=== PATIENT | female | born 1975 | race Caucasian/White ===

== ENCOUNTER 2019-05-11 07:12 | Emergency (ER) | payer BC, OTHER ==
[2019-05-11] MEDS ORDERED: Ketorolac 60 MG/2 ML SDV IM ONE (07:42)
--- NOTE | 2019-05-11 07:45 | EDM.PDOC ---
ED HPI GENERAL MEDICAL PROBLEM - General Chief Complaint: Lower Extremity Injury/Pain Stated Complaint: FALL Time Seen by Provider: 05/11/19 07:12 Source of Information: Reports: Patient, EMS History Limitations: Reports: No Limitations - History of Present Illness INITIAL COMMENTS - FREE TEXT/NARRATIVE: 43 y.o.w.foster came by EMS to the ED after she fell down the stairs and heard a "pop " at her right knee. She has mod pain at her right ant knee. There was no direct Trauma to her right knee. There was no swelling no open wound but tenderness to palpation and movement. No SOB, no C?, no other acute med issues. BP 109/69 pulse 108 RR 20 Pulse ox 100% on RA Temp 36.5 Onset Date: 05/11/19 Onset Time: 16:00 Duration: Minutes: Location: Reports: Lower Extremity, Right (ant knee) Quality: Reports: Ache, Dull, Pressure Severity: Moderate Improves with: Reports: Cold Therapy Worsens with: Reports: Movement Context: Reports: Trauma Associated Symptoms: Reports: No Other Symptoms R knee Pain Score (Numeric/FACES): 10 - Related Data Allergies Allergy/AdvReac Type Severity Reaction Status Date / Time cortisone Allergy Abdominal Verified 05/11/19 07:25 Pain Home Meds: Home Meds NK [No Known Home Meds] 05/11/19 [History] Past Medical History - Past Health History Medical/Surgical History: Denies Medical/Surgical History Respiratory History: Reports: Asthma Gastrointestinal History: Reports: Pancreatitis SPA CONCIERGE History: Reports: Other SPA CONCIERGE History: [id number] Musculoskeletal History: Reports: Fracture Other Musculoskeletal History: R toe fx Neurological History: Reports: Migraines Endocrine/Metabolic History: Reports: Obesity/BMI 30+ - Infectious Disease History Infectious Disease History: Reports: Chicken Pox, Measles, Shingles - Past Surgical History HEENT Surgical History: Reports: Adenoidectomy, Oral Surgery, Tonsillectomy GI Surgical History: Reports: None Musculoskeletal Surgical History: Reports: None Social & Family History - Family History Family Medical History: Noncontributory - Tobacco Use Smoking Status *Q: Never Smoker - Caffeine Use Caffeine Use: Reports: Coffee, Soda - Recreational Drug Use Recreational Drug Use: No Review of Systems - Review of Systems Review Of Systems: See Below Constitutional: Reports: No Symptoms Eyes: Reports: No Symptoms Ears: Reports: No Symptoms Nose: Reports: No Symptoms Mouth/Throat: Reports: No Symptoms Respiratory: Reports: No Symptoms Cardiovascular: Reports: No Symptoms GI/Abdominal: Reports: No Symptoms Genitourinary: Reports: No Symptoms Musculoskeletal: Reports: Other (ant knee pain, no sweling, no open wound, pain with movement) Skin: Reports: No Symptoms Neurological: Reports: No Symptoms Psychiatric: Reports: No Symptoms ED EXAM, GENERAL - Physical Exam Exam: See Below Exam Limited By: Physical Impairment General Appearance: Alert, WD/WN, Mild Distress, Moderate Distress, Obese ( morbid obese) Eye Exam: Bilateral Eye: Normal Inspection Ears: Normal External Exam Ear Exam: Bilateral Ear: Auricle Normal Nose: Normal Inspection Throat/Mouth: Normal Inspection Head: Atraumatic, Normocephalic Neck: Normal Inspection, Supple, Non-Tender, Full Range of Motion Respiratory/Chest: No Respiratory Distress, Lungs Clear, Normal Breath Sounds Cardiovascular: Normal Peripheral Pulses, Regular Rate, Rhythm, No Edema, No Gallop Peripheral Pulses: 1+: Brachial (L) GI/Abdominal: Normal Bowel Sounds, Soft, Non-Tender, No Organomegaly, No Abnormal Bruit, No Mass, Pelvis Stable (Female) Exam: Deferred Rectal (Female) Exam: Deferred Back Exam: Normal Inspection Extremities: Normal Inspection, Limited Range of Motion (right knee) Neurological: Alert, Oriented, CN II-XII Intact, Normal Cognition, Abnormal Gait (due to right knee pain) Psychiatric: Normal Affect, Normal Mood Skin Exam: Warm, Dry, Intact, Normal Color Lymphatic: No Adenopathy Course - Vital Signs Text/Narrative:: 43 y.o.w.f came by EMS to the ED after she fell down the stairs and heard a "pop " at her right knee. She has mod pain at her right ant knee. There was no direct Trauma to her right knee. There was no swelling no open wound but tenderness to palpation and movement. No SOB, no C?, no other acute med issues. BP 109/69 pulse 108 RR 20 Pulse ox 100% on RA Temp 36.5 PE: WNWD W F with right knee pain after a fall. Imaging: Righ knee 3 view: NAD as per RAD Impression: Right knee sprain Tx: Toradol, ICE, Knee immobilizer. Pt has her own crutches. Reexam: Improved Plan: D/C with instructions Last Recorded V/S: Last Vital Signs Temp 36.5 C 05/11/19 07:12 Pulse 102 H 05/11/19 09:24 Resp 18 05/11/19 09:24 BP 109/64 05/11/19 09:24 Pulse Ox 100 05/11/19 09:24 - Orders/Labs/Meds Orders: Active Orders 24 hr Category Date Time Status Cooling Warming Measures [RC] ASDIRECTED Care 05/11/19 07:42 Active Knee 3V Rt [CR] Stat Exams 05/11/19 07:30 Taken Ice Bag [Ice Therapy] [OM.PC] Routine Oth 05/11/19 07:42 Ordered Meds: Medications Discontinued Medications Generic Name Dose Route Start Last Admin Trade Name Benny PRN Reason Stop Dose Admin Ketorolac Tromethamine 60 mg 05/11/19 07:42 05/11/19 07:45 Toradol IM 05/11/19 07:43 60 mg ONETIME ONE Administration Departure - Departure Time of Disposition: 09:37 Disposition: Home, Self-Care 01 Condition: Good Clinical Impression: Right knee sprain Qualifiers: Encounter type: initial encounter Involved ligament of knee: unspecified ligament Qualified Code(s): S83.91XA - Sprain of unspecified site of right knee , initial encounter - Discharge Information Instructions: Ketorolac injection, Knee Pain, Adult, [id number] Referrals: Jatinder Lowery MD [Primary Care Provider] - Forms: ED Department Discharge, ED Return to Work/School Form Additional Instructions: Rest, Ice and elevation, use knee immobilizer/crutches, please follow up with your regular MD next week as needed at clinic, come back if your symptoms get worse acutely - My Orders Last 24 Hours: My Active Orders 05/11/19 07:30 Knee 3V Rt [CR] Stat 05/11/19 07:42 Cooling Warming Measures [RC] ASDIRECTED Ice Bag [Ice Therapy] [OM.PC] Routine - Assessment/Plan Last 24 Hours: My Active Orders 05/11/19 07:30 Knee 3V Rt [CR] Stat 05/11/19 07:42 Cooling Warming Measures [RC] ASDIRECTED Ice Bag [Ice Therapy] [OM.PC] Routine
[2019-05-11 09:24] VITALS: BP 109/64
== END 2019-05-11 10:05 | disposition home or self-care (01) ==
LOC: FB.ED 07:12
DX: S83.91XA Sprain of unspecified site of right knee, initial encounter (principal); Z88.8 Allergy status to other drugs, medicaments and biological substances; W10.9XXA Fall (on) (from) unspecified stairs and steps, initial encounter
CPT/HCPCS: 73562; 96372; 99284; J1885; 29505

== ENCOUNTER 2019-12-02 10:56 | Emergency (ER) | payer BC ==
[2019-12-02 11:15] VITALS: PULSE 111
--- NOTE | 2019-12-02 11:32 | EDM.PDOC ---
ED HPI GENERAL MEDICAL PROBLEM - General Chief Complaint: Lower Extremity Injury/Pain Time Seen by Provider: 12/02/19 11:25 Source of Information: Reports: Patient History Limitations: Reports: No Limitations - History of Present Illness INITIAL COMMENTS - FREE TEXT/NARRATIVE: 44-year-old female who was going down stairs at her home and was leading with her left foot and her left foot slipped causing her to fall and twisting her left ankle and bending her left knee inward with a feeling of a pop and falling to the ground catching herself with both hands and landing on her left side. She did not hit her head. There was no loss of consciousness. She has no neck or back pain. She does have pain in her left knee, mostly on the lateral aspect and also in her left ankle, mostly on the lateral side as well. She was having 10/10 pain with any kind of movement initially and was unable to bear weight area and she arrives to us via ambulance. Her pain is now a 7/10 with a constant aching and throbbing. The pain was a sharp pain initially and is a sharp pain now with any type of movement and with some palpation along the lateral aspect. She has normal sensation and movement in her foot. She has no abdominal pain. This occurred approximately 10:15 AM today. She apparently had a on her right knee several months ago for ACL reconstruction and has had limited ability to use her right leg because of this. There are no other associated signs or symptoms. There are no other modifying factors. 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: Other (see below) (Nothing) Left Knee Pain Score (Numeric/FACES): 8 - Related Data Allergies Allergy/AdvReac Type Severity Reaction Status Date / Time cortisone Allergy Abdominal Verified 05/11/19 07:25 Pain Home Meds: Home Meds Acetaminophen/HYDROcodone [Bellwood 325-5 MG] 1 - 2 tab PO Q6H PRN #20 tab [Rx] Albuterol Sulfate [Proair Hfa] 2 inh INH Q4H PRN 03/20/20 [History] Meloxicam 1 tab PO DAILY 12/02/19 [History] Past Medical History Respiratory History: Reports: Other (See Below) (Reactive airway disease and uses inhaler intermittently) Gastrointestinal History: Reports: Pancreatitis 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: 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 Musculoskeletal History: Reports: Fracture Other Musculoskeletal History: R toe fx Neurological History: Reports: Migraines Endocrine/Metabolic History: Reports: Obesity/BMI 30+ - Infectious Disease History Infectious Disease History: Reports: Chicken Pox, Measles, Shingles - Past Surgical History HEENT Surgical History: Reports: Adenoidectomy, Oral Surgery, Tonsillectomy Female Surgical History: Reports: Section Musculoskeletal Surgical History: Reports: Arthroscopic Knee Other Musculoskeletal Surgeries/Procedures:: right knee 10/2019 Social & Family History - Tobacco Use Smoking Status *Q: Never Smoker - Caffeine Use Caffeine Use: Reports: Coffee, Soda - Alcohol Use Alcohol Use History: No - Recreational Drug Use Recreational Drug Use: No - Living Situation & Occupation Occupation: Unemployed Review of Systems - Review of Systems Review Of Systems: See Below Constitutional: Reports: No Symptoms Eyes: Reports: No Symptoms Ears: Reports: No Symptoms Nose: Reports: No Symptoms Mouth/Throat: Reports: No Symptoms Respiratory: Reports: No Symptoms Cardiovascular: Reports: No Symptoms GI/Abdominal: Reports: No Symptoms Genitourinary: Reports: No Symptoms Musculoskeletal: Reports: Other (Left knee and ankle pain status post injury) Skin: Reports: No Symptoms Neurological: Reports: No Symptoms ED EXAM, GENERAL - Physical Exam Exam: See Below Exam Limited By: No Limitations General Appearance: Alert, WD/WN, Moderate Distress (In pain.), Other (She is awake, alert and does not appear to be toxic.) Eye Exam: Bilateral Eye: EOMI, Normal Inspection, PERRL Ears: Normal External Exam, Hearing Grossly Normal Ear Exam: Bilateral Ear: Auricle Normal Nose: Normal Inspection, Normal Mucosa, No Blood Throat/Mouth: Normal Inspection, Normal Lips, Normal Oropharynx, Normal Voice, No Airway Compromise Head: Atraumatic, Normocephalic Neck: Normal Inspection, Supple, Non-Tender, Full Range of Motion Respiratory/Chest: No Respiratory Distress, Lungs Clear, Normal Breath Sounds, No Accessory Muscle Use, Chest Non-Tender Cardiovascular: Normal Peripheral Pulses, No Murmur, Tachycardia Peripheral Pulses: 2+: Radial (L), Radial (R), Dorsalis Pedis (L), Dorsalis Pedis (R) GI/Abdominal: Normal Bowel Sounds, Soft, Non-Tender, Other (Protuberant) Back Exam: Normal Inspection Extremities: No Pedal Edema, Normal Capillary Refill, Other (Tender around the lateral aspect of left knee but also some along the medial joint line and also tender over left lateral ankle. No foot tenderness. No lower leg tenderness below the knee and above the ankle. No definite crepitus or definite bony deformity.) Neurological: Alert, Oriented, CN II-XII Intact, Normal Cognition, No Motor/ Sensory Deficits Skin Exam: Warm, Dry, Intact, Normal Color, No Rash Course - Vital Signs Last Recorded V/S: Last Vital Signs Temp 36.3 C 12/02/19 11:09 Pulse 111 H 12/02/19 11:09 Resp 18 12/02/19 11:09 BP 132/79 12/02/19 11:09 Pulse Ox 100 12/02/19 11:09 - Orders/Labs/Meds Orders: Active Orders 24 hr Category Date Time Status Ankle Min 3V Lt [CR] Stat Exams 12/02/19 11:41 Taken Knee 3V Lt [CR] Stat Exams 12/02/19 11:41 Taken Meds: Medications Discontinued Medications Generic Name Dose Route Start Last Admin Trade Name Barberq PRN Reason Stop Dose Admin Hydrocodone Bitart/Acetaminophen 2 tab 12/02/19 11:42 12/02/19 12:03 Bellwood 325-5 Mg PO 12/02/19 11:43 2 tab ONETIME ONE Administration - Radiology Interpretation Free Text/Narrative:: X-ray of left knee shows no definite fracture or dislocation. X-ray of left ankle shows nondisplaced left distal fibula fracture, Crane B. - Re-Assessments/Exams Free Text/Narrative Re-Assessment/Exam: 12/02/19 12:40: The patient has an injury to her left knee with internal derangement. She was having much pain to do a thorough ranging of her left knee and she also had x-ray evidence of a left lateral malleolus fracture. She already has an orthopedist through [facility] in [place] (Dr. Jean-Baptiste). I was able to call his clinic at [facility] and arrange for her to be seen by Dr. Jean-Baptiste on 12/06/2019 at 9:45 AM at his [place] clinic. For now the patient will have an Onel wrap to her left knee and an orthotic boot to her left foot and ankle and lower leg and she is to have no weightbearing on the left leg using her crutches. I will also give the patient a prescription for hydrocodone 5/325 for her more severe pain. She is to elevate her left knee and ankle and apply ice packs intermittently to these areas over the next 2-3 days. Departure - Departure Time of Disposition: 12:55 Disposition: Home, Self-Care 01 Condition: Good Clinical Impression: Internal derangement of left knee Closed fracture of left distal fibula Qualifiers: Encounter type: initial encounter Fracture morphology: unspecified fracture morphology Qualified Code(s): S82.832A - Other fracture of upper and lower end of left fibula, initial encounter for closed fracture Fall from slipping on ice Qualifiers: Encounter type: initial encounter Qualified Code(s): W00.9XXA - Unspecified fall due to ice and snow, initial encounter - Discharge Information Prescriptions: Acetaminophen/HYDROcodone [Bellwood 325-5 MG] 1 - 2 tab PO Q6H PRN #20 tab PRN Reason: Moderate to severe pain Instructions: Crutch Use, Adult, [id number], Ankle Fracture, [id number] Referrals: PCP,None [Primary Care Provider] - Forms: ED Department Discharge Additional Instructions: There was no definite fracture evident on your left knee x-ray but you may have a ligament or meniscus injury to this knee. You do have a fracture of the left lateral ankle. Use the Onel wrap on your left knee for comfort and support. Use the orthotic boot on your left lower leg, ankle and foot and leave it in place pretty much at all times unless when cleaning or foot or leg. Use your crutches with no weightbearing on your left leg. Medication as prescribed for moderate to severe pain (hydrocodone 5/325). You have an appointment to see Dr. Jean-Baptiste at his [place] clinic on 12/06/2019 at 9:45 AM. Elevate your left knee and ankle often over the next 4-5 days and you should apply ice packs intermittently to the left knee and ankle as well. Back to her dizzy department for signs of infection, marked increase in swelling or any other concerning sign or symptom. Sepsis Event Note - Evaluation Sepsis Screening Result: No Definite Risk - Focused Exam Vital Signs: Vital Signs Temp Pulse Resp BP Pulse Ox 12/02/19 11:09 36.3 C 111 H 18 132/79 100 Date Exam was Performed: 12/02/19 Time Exam was Performed: 12:43 - My Orders Last 24 Hours: My Active Orders 12/02/19 11:41 Ankle Min 3V Lt [CR] Stat Knee 3V Lt [CR] Stat - Assessment/Plan Last 24 Hours: My Active Orders 12/02/19 11:41 Ankle Min 3V Lt [CR] Stat Knee 3V Lt [CR] Stat
[2019-12-02] MEDS ORDERED: Acetaminophen/HYDROcodone 325-5 MG Tab PO ONE (11:42)
[2019-12-02 13:24] VITALS: BP 122/75
--- NOTE | 2019-12-02 13:27 | CR ---
INDICATION: Fall with injury. JUAN DAVID KNEE: Three views of the left knee were obtained 12/02/19 - no comparisons. There is question of a very minimal knee joint effusion. However, no other evidence of an acute process was identified - no fracture or dislocation was seen. No significant narrowing of joint spaces or significant hypertrophic degenerative changes were identified. IMPRESSION: Question minimal knee joint effusion. MTDD
--- NOTE | 2019-12-02 13:31 | CR ---
INDICATION: Fall with injury. LEFT ANKLE: Three views of the left ankle revealed a spiral fracture of the the distal shaft -metaphysis of the fibula with minimal deformity. The ankle mortise was otherwise intact in appearance the ankle mortise joint space appeared to be symmetrical. Soft tissue swelling is noted about the ankle. IMPRESSION: Distal fibular fracture with adequate position and alignment. MTDD
== END 2019-12-02 13:24 | disposition home or self-care (01) ==
LOC: FB.ED 10:56
DX: S82.832A Other fracture of upper and lower end of left fibula, initial encounter for closed fracture (principal); M23.92 Unspecified internal derangement of left knee; E66.9 Obesity, unspecified; Z68.43 Body mass index [BMI] 50.0-59.9, adult; Z79.899 Other long term (current) drug therapy; W10.9XXA Fall (on) (from) unspecified stairs and steps, initial encounter; Y92.009 Unspecified place in unspecified non-institutional (private) residence as the place of occurrence of the external cause
CPT/HCPCS: 73562; 73610; 99284; A9270

== ENCOUNTER 2021-01-14 19:27 | Emergency (ER) | payer BC ==
[2021-01-14] MEDS ORDERED: Ketorolac 30 MG/ML SDV IM STA (20:54)
--- NOTE | 2021-01-14 20:56 | EDM.PDOC ---
ED HPI GENERAL MEDICAL PROBLEM - General Chief Complaint: Respiratory Problem Stated Complaint: TROUBLE BREATHING Time Seen by Provider: 01/14/21 19:30 Source of Information: Reports: Patient History Limitations: Reports: No Limitations - History of Present Illness INITIAL COMMENTS - FREE TEXT/NARRATIVE: Patient presented to the ED because of cough for 1 week and for the past 2 days she has been having dyspnea and and low grade fever. Her son tested positive for Covid 2 weeks ago and her symptoms started 1 week post exposure. There is no nausea/vomiting, diarrhea. Treatments RD MANAGER: Reports: Other (see below) Other Treatments RD MANAGER: ALBUTERAL INHALER - Related Data Allergies Allergy/AdvReac Type Severity Reaction Status Date / Time cortisone Allergy Abdominal Verified 05/11/19 07:25 Pain Home Meds: Home Meds Albuterol Sulfate [Proair Hfa] 2 inh INH Q4H PRN 12/02/19 [History] Codeine/guaiFENesin [guaiFENesin-Codeine Syrup] 10 ml PO Q6H #120 ml 01/14/21 [Rx] Ketorolac [Toradol] 10 mg PO Q8H #15 tab 01/14/21 [Rx] Past Medical History - Past Health History Medical/Surgical History: Denies Medical/Surgical History Respiratory History: Reports: Other (See Below) Gastrointestinal History: Reports: Pancreatitis 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 CREAM FREEZER History: [id number] Musculoskeletal History: Reports: Fracture Other Musculoskeletal History: R toe fx Neurological History: Reports: Migraines Endocrine/Metabolic History: Reports: Obesity/BMI 30+ - Infectious Disease History Infectious Disease History: Reports: Chicken Pox, Measles, Shingles - Past Surgical History HEENT Surgical History: Reports: Adenoidectomy, Oral Surgery, Tonsillectomy GI Surgical History: Reports: None Female Surgical History: Reports: Section Musculoskeletal Surgical History: Reports: Arthroscopic Knee Other Musculoskeletal Surgeries/Procedures:: right knee 10/2019 Social & Family History - Family History Family Medical History: No Pertinent Family History - Tobacco Use Tobacco Use Status *Q: Never Tobacco User - Caffeine Use Caffeine Use: Reports: None - Recreational Drug Use Recreational Drug Use: No - Living Situation & Occupation Occupation: Unemployed ED ROS GENERAL - Review of Systems Review Of Systems: See Below Constitutional: Reports: No Symptoms HEENT: Reports: No Symptoms Respiratory: Reports: Shortness of Breath, Cough Cardiovascular: Reports: No Symptoms Endocrine: Reports: No Symptoms GI/Abdominal: Reports: No Symptoms : Reports: No Symptoms Musculoskeletal: Reports: No Symptoms Skin: Reports: No Symptoms ED EXAM, GENERAL - Physical Exam Exam: See Below Exam Limited By: No Limitations General Appearance: Alert, No Apparent Distress Eye Exam: Bilateral Eye: PERRL Ears: Normal External Exam, Normal Canal Nose: Normal Inspection, Normal Mucosa, No Blood Throat/Mouth: Normal Inspection, Normal Lips Head: Atraumatic, Normocephalic Neck: Normal Inspection, Supple, Non-Tender, Full Range of Motion Respiratory/Chest: No Respiratory Distress, Lungs Clear, Normal Breath Sounds, No Accessory Muscle Use, Chest Non-Tender Cardiovascular: Normal Peripheral Pulses, Regular Rate, Rhythm, No Edema, No Gallop, No JVD, No Murmur, No Rub GI/Abdominal: Normal Bowel Sounds, Soft, Non-Tender, No Organomegaly, No Distention, No Abnormal Bruit, No Mass, Pelvis Stable Back Exam: Normal Inspection, Full Range of Motion Course - Vital Signs Text/Narrative:: Robitussin AC 10 ml po x1 Toradol 60 mg IM x1 Last Recorded V/S: Last Vital Signs Temp 38.5 C H 01/14/21 21:19 Pulse 123 H 01/14/21 21:19 Resp 24 H 01/14/21 21:19 BP 126/42 L 01/14/21 21:19 Pulse Ox 94 L 01/14/21 21:19 - Orders/Labs/Meds Orders: Active Orders 24 hr Category Date Time Status Isolation [COMM] Routine Oth 01/14/21 19:43 Ordered Labs: Laboratory Tests 01/14/21 Range/Units 19:45 SARS-CoV-2 RNA ([facility]) Positive H (NEGATIVE) Meds: Medications Discontinued Medications Generic Name Dose Route Start Last Admin Trade Name Freq PRN Reason Stop Dose Admin Guaifenesin/Codeine Phosphate 10 ml 01/14/21 21:08 01/14/21 21:11 Codeine/Guaifenesin 10-100 Mg/5 Ml Syrup 5 Ml Cup PO 01/14/21 21:09 10 ml ONETIME ONE Administration Ketorolac Tromethamine 60 mg 01/14/21 20:54 01/14/21 21:07 Ketorolac 30 Mg/Ml Sdv IM 01/14/21 20:55 60 mg NOW STA Administration Departure - Departure Time of Disposition: 21:00 Disposition: Home, Self-Care 01 Condition: Good Clinical Impression: COVID-19 - Discharge Information Prescriptions: Codeine/guaiFENesin [guaiFENesin-Codeine Syrup] 10 ml PO Q6H #120 ml Ketorolac [Toradol] 10 mg PO Q8H #15 tab Instructions: 10 Things You Can Do to Manage Your COVID-19 Symptoms at Home - [facility] Referrals: PCP,None [Primary Care Provider] - Forms: ED Department Discharge Additional Instructions: Please read discharge insructions on COVID 19 Increase oral fluids Isolate yourself for 2 weeks Continue your inhaler Take toradol 10 mg every 8 hours for 3 days Take 1 tablet each of Vit C,D,Zinc and Vit B complex for 2 weeks Robitussin with codeine 10 ml every 40-6 hours as needed for cough Follow up as needed Sepsis Event Note (ED) - Evaluation Sepsis Screening Result: Possible Sepsis Risk - My Orders Last 24 Hours: My Active Orders 01/14/21 19:43 Isolation [COMM] Routine - Assessment/Plan Last 24 Hours: My Active Orders 01/14/21 19:43 Isolation [COMM] Routine
[2021-01-14] MEDS ORDERED: Codeine/guaiFENesin 10-100 MG/5 ML Syrup 5 ML Cup PO ONE (21:08)
[2021-01-14 21:25] VITALS: BP 126/42; PULSE 123
== END 2021-01-14 21:25 | disposition home or self-care (01) ==
LOC: FB.ED 19:27
DX: U07.1 COVID-19 (principal); E66.9 Obesity, unspecified; Z88.5 Allergy status to narcotic agent; Z68.44 Body mass index [BMI] 60.0-69.9, adult
CPT/HCPCS: 87635; 87804; 96372; 99284; A9270; J1885; U0002